=== PATIENT | female | born 1955 | race Caucasian/White ===

== ENCOUNTER 2017-05-07 06:14 | Emergency (ER) | payer OTHER ==
[~2017-05-07] VITALS: Ht 162.6 cm; Wt 62.4 kg
[~2017-05-07 06:14] MED LIST: ASPI1TAB2 PO; AZIT250T6 PO; BENZ100C PO; CEPH500C PO; CHOL100013 PO; HYDR200T5 PO; METH-37 PO; MULT-18 PO; MYCO500T PO; NAPR500T3 PO; ONDA4TAB7 PO; OXYC-328 PO; PRED1TAB PO; TRAM50TA PO
--- NOTE | 2017-05-07 06:39 | ED.ADGEN ---
Past History Past Medical History: Cancer, Kidney Stones, Other Past Surgical History: Hysterectomy Alcohol Use: None Drug Use: None Adult General HPI HPI Patient is a 61-year-old woman history of lupus, for which she is on chronic steroids, renal calculi, who presents to the emergency department with a complaint of 3 days of worsening ear pain, now radiating down into the face and jaw, and soreness in the mouth. Patient states that she initially experienced left-sided isolated ear pain, which is gradually worsening, she also noted that she had "white bumps", on her tongue on the roof of her mouth. Patient states that she contacted her table saw operator to , and had her steroid dose increased to 15 mg of prednisone daily. She states that despite taking this medication she is drinking expressing increasing pain. Also noticed a cough productive of white sputum over the past several days as well. No rashes, no swelling of the extremities. States there is some shortness breath, denies any chest pain, states did has had some sweating", but no chills. Denies any nausea, vomiting, any urinary complaints, any facial weakness or numbness, states she's had some tingling along the ear region, denies any weakness, numbness or tingling other areas of the body. No recent travel, no surgeries, no other medication changes. She last took acetaminophen at home 2 hours prior to arrival. No sick contacts or exposures, vaccinations are up-to-date. Review of Systems Review of Systems Constitutional: Denies fever or chills [] Eyes: Denies change in visual acuity, redness, or eye pain [] HENT: Denies nasal congestion or sore throat, complaining of left ear pain spreading into the face and down the jaw, with pain in the mouth and tongue with white lesions noted. Respiratory: Cough with clear sputum, shortness of breath with a past several days. Cardiovascular: No additional information not addressed in HPI [] GI: Denies abdominal pain, nausea, vomiting, bloody stools or diarrhea [] : Denies dysuria or hematuria [] Musculoskeletal: Denies back pain or joint pain [] Integument: Denies rash or skin lesions [] Neurologic: Denies headache, focal weakness or sensory changes [] Endocrine: Denies polyuria or polydipsia [] Current Medications Current Medications Current Medications Medications (Trade) Dose Ordered Sig/Nazia Start Time Stop Time Status Last Admin Dose Admin Amoxicillin/ Clavulanate Potassium (Augmentin 875/ 125mg) 1 tab 1X ONCE 05/07/17 08:15 05/07/17 08:16 DC 05/07/17 08:14 1 TAB Fluconazole (Diflucan) 200 mg 1X ONCE 05/07/17 08:15 05/07/17 08:16 DC 05/07/17 08:14 200 MG Multi-Ingredient Mouthwash/Gargle (Magic Mouthwash) 10 ml 1X ONCE 05/07/17 06:45 05/07/17 06:46 DC 05/07/17 07:25 10 ML Naproxen (Naprosyn) 250 mg 1X ONCE 05/07/17 06:45 05/07/17 06:46 DC 05/07/17 06:50 250 MG Nystatin (Mycostatin) 5 ml 1X ONCE 05/07/17 08:15 05/07/17 08:16 DC 05/07/17 08:14 5 ML Oxycodone/ Acetaminophen (Percocet 5/325) 1 tab 1X ONCE 05/07/17 06:45 05/07/17 06:46 DC 05/07/17 06:50 1 TAB Allergies Allergies Allergies Coded Allergies Type Severity Reaction Last Updated Verified No Known Drug Allergies 12/07/14 No Physical Exam Physical Exam Constitutional: Well developed, well nourished, no acute distress, non-toxic appearance. [] HENT: Normocephalic, atraumatic, bilateral external ears normal, patient with erythema to the left tympanic membrane, external canal with mild irritation, no lesions identified, patient with normal-appearing right tympanic membrane, patient noted to have a single white vesicular type lesion located on the left upper palate, thrush noted on the tongue, no plaquing, no swelling of the mucosa , oropharynx is otherwise clear, oropharynx moist, no oral exudates, nose normal. [] Eyes: PERRLA, EOMI, conjunctiva normal, no discharge. [] Neck: Normal range of motion, no tenderness, supple, no stridor. [] Cardiovascular:Heart rate regular rhythm, no murmur, S1, S2, no rubs or gallops. [] Lungs & Thorax: Patient coughing and examination, mildly diminished breath of the bases, no rhonchi or rales appreciated. No wheezing.[] Abdomen: Bowel sounds normal, soft, no tenderness, no rebound, rigidity, no guarding, no masses, no pulsatile masses. [] Skin: Warm, dry, no erythema, no rash. [] Back: No tenderness, no CVA tenderness. [] Extremities: No tenderness, no cyanosis, no clubbing, ROM intact, no edema. [] Neurologic: Alert and oriented X 3, normal motor function, normal sensory function, no focal deficits noted. [] Psychologic: Affect normal, judgement normal, mood normal. [] Current Patient Data Vital Signs Vital Signs Date Time Temp Pulse Resp B/P (MAP) Pulse Ox O2 Delivery O2 Flow Rate FiO2 05/07/17 06:35 98.3 85 16 97 Room Air Lab Results Laboratory Tests Test 05/07/17 06:36 05/07/17 07:25 White Blood Count 4.3 x10^3/uL (4.0-11.0) Red Blood Count 5.00 x10^6/uL (3.50-5.40) Hemoglobin 14.8 g/dL (12.0-15.5) Hematocrit 43.2 % (36.0-47.0) Mean Corpuscular Volume 86 fL (79-100) Mean Corpuscular Hemoglobin 30 pg (25-35) Mean Corpuscular Hemoglobin Concent 34 g/dL (31-37) Red Cell Distribution Width 16.2 % (11.5-14.5) H Platelet Count 198 x10^3/uL (140-400) Neutrophils (%) (Auto) 58 % (31-73) Lymphocytes (%) (Auto) 29 % (24-48) Monocytes (%) (Auto) 10 % (0-9) H Eosinophils (%) (Auto) 2 % (0-3) Basophils (%) (Auto) 0 % (0-3) Neutrophils # (Auto) 2.5 x10^3uL (1.8-7.7) Lymphocytes # (Auto) 1.3 x10^3/uL (1.0-4.8) Monocytes # (Auto) 0.4 x10^3/uL (0.0-1.1) Eosinophils # (Auto) 0.1 x10^3/uL (0.0-0.7) Basophils # (Auto) 0.0 x10^3/uL (0.0-0.2) Sodium Level 143 mmol/L (136-145) Potassium Level 3.7 mmol/L (3.5-5.1) Chloride Level 107 mmol/L (98-107) Carbon Dioxide Level 28 mmol/L (21-32) Anion Gap 8 (6-14) Blood Urea Nitrogen 10 mg/dL (7-20) Creatinine 0.7 mg/dL (0.6-1.0) Estimated GFR (Cockcroft-Gault) 85.1 BUN/Creatinine Ratio 14 (6-20) Glucose Level 87 mg/dL (70-99) Calcium Level 8.8 mg/dL (8.5-10.1) Total Bilirubin 0.4 mg/dL (0.2-1.0) Aspartate Amino Transferase (AST) 14 U/L (15-37) L Alanine Aminotransferase (ALT) 20 U/L (14-59) Alkaline Phosphatase 136 U/L (46-116) H Total Protein 8.0 g/dL (6.4-8.2) Albumin 4.0 g/dL (3.4-5.0) Albumin/Globulin Ratio 1.0 (1.0-1.7) Urine Collection Type Unknown Urine Color Yellow Urine Clarity Clear Urine pH 6.0 Urine Specific [place] 1.015 Urine Protein Neg (NEG-TRACE) Urine Glucose (UA) Neg mg/dL (NEG) Urine Ketones (Stick) Neg mg/dL (NEG) Urine Blood Neg (NEG) Urine Nitrite Neg (NEG) Urine Bilirubin Neg (NEG) Urine Urobilinogen Dipstick 0.2 mg/dL (0.2 mg/dL) Urine Leukocyte Esterase Neg (NEG) Urine RBC 1-2 /HPF (0-2) Urine WBC 1-4 /HPF (0-4) Urine Squamous Epithelial Cells Few /LPF Urine Bacteria 0 /HPF (0-FEW) Urine Yeast Present /HPF EKG EKG EC: Sinus rhythm, heart rate 81 beats/minute, left axis deviation, QTC of 447, NM 160, QRS of 78, no ST elevations or depressions, contour normality is noted in the inferior leads, abnormal ECG, does not meet STEMI criteria. When compared to ECG from 02/10/2016, no significant changes noted. As interpreted by me. Radiology/Procedures Radiology/Procedures [][address] [address] IMAGING REPORT Signed PATIENT: FLORENTINO ROBERTO ACCOUNT: [id number] : 1955 LOCATION: ER AGE: 61 SEX: F EXAM STATUS: REG ER ORD. PHYSICIAN: FABRICIO ALCALA DO REASON: Cough/SOB PROCEDURE: CHEST PA & LATERAL Chest, 2 views, 05/07/2017: History: Cough, shortness of breath Comparison is made to a study from 02/10/2016. The heart size and pulmonary vascularity are normal. There is moderate tortuosity of the thoracic aorta. No pulmonary infiltrates are seen. There is no evidence of pleural fluid. There are scattered degenerative changes in the spine with a mild scoliosis. There are new and worsening mid thoracic vertebral compression fractures. These have progressed since 10/14/2015. Surgical clips are present in the right axilla. IMPRESSION: 1. No acute cardiopulmonary abnormality is detected. 2. Worsening mid thoracic vertebral compression fractures DICTATED AND SIGNED BY: EBER MUHAMMAD MD DATE: 05/07/17719 CC: MARIELOS JOHNSON; FABRICIO ALCALA DO ~ Course & Med Decision Making Course & Med Decision Making Pertinent Labs and Imaging studies reviewed. (See chart for details) Patient's medical history and presentation, laboratory studies obtained along with x-ray of the chest which was unremarkable along with laboratory studies revealing no acute findings. Patient's examination is consistent with left- sided otitis media, and congestion patient's other symptoms is likely a viral infection, however with steroid use risk for superimposed bacterial infection is elevated. Additionally, patient noted to have evidence of reed and mouth and also in urine. Patient treated with Magic mouthwash swish and swallow in the emergency department, which she stated did help considerably with the discomfort. She also received naproxen and Percocet in the ED for ear pain, and stated that her pain was "three quarters of the way gone" on reevaluation. I did discuss findings with patient, including abscesses signs of systemic infection, with a clear chest x-ray, and unchanged ECG. Patient received first dose of Diflucan in the emergency department, was given a prescription for several Diflucan be taken on 10 May, additionally was given nystatin swish and swallow to be used for the next 2 weeks unless it is stopped by her primary care provider. Patient was also given Augmentin 875 mg, first dose in the ED, to be taken twice daily for the next 7 days to treat otitis media. She was given a short course of Percocet, along with Colace for constipation, instructed to follow-up with her primary care provider next week. Patient and at bedside voiced understanding and agreement with all instructions and precautions, and agreement with plan as stated. To return to the ED if any new or concerning symptoms develop. Patient discharged home in stable condition with prescriptions, precautions, and instructions for follow-up as stated. Final Impression Final Impression [] Problems: Dragon Disclaimer Dragon Disclaimer This electronic medical record was generated, in whole or in part, using a voice recognition dictation system. Departure: Impression: Primary Impression: Reed infection Additional Impression: Otitis media Disposition: HOME, SELF-CARE Condition: IMPROVED Scripts Docusate Sodium (COLACE) 100 Mg Capsule 100 MG PO QHS, #20 CAP Prov: FABRICIO ALCALA DO 05/07/17 Oxycodone Hcl/Acetaminophen (PERCOCET 5-325 MG TABLET) 1 Each Tablet 1 TAB PO PRN Q6HRS Y for PAIN, #10 TAB Prov: FABRICIO ALCALA DO 05/07/17 Fluconazole (DIFLUCAN) 200 Mg Tablet 200 MG PO 1X, #1 TAB Prov: FABRICIO ALCALA DO 05/07/17 Amoxicillin/Potassium Clav (AUGMENTIN 875-125 TABLET) 1 Each Tablet 1 TAB PO BID, #13 TAB Prov: FABRICIO ALCALA DO 05/07/17 FABRICIO ALCALA DO May 07, 2017 06:39
[2017-05-07] MEDS ORDERED: NAPROXEN 500 MG TABLET PO ONE (06:45)
[2017-05-07] MEDS ORDERED: LIDO:MAALOX:BENADRYL 1:1:1 180 ML BOTTLE. PO ONE (06:45)
[2017-05-07] MEDS ORDERED: oxyCODONE/APAP 5/325 1 TAB TABLET PO ONE (06:45)
[2017-05-07 06:53] LABS: BASO % 0 % (0-3); EOS # 0.1 x10^3/uL (0.0-0.7); EOS % 2 % (0-3); HEMATOCRIT 43.2 % (36.0-47.0); HEMOGLOBIN 14.8 g/dL (12.0-15.5); LYMPH # 1.3 x10^3/uL (1.0-4.8); LYMPH % 29 % (24-48); MEAN CORPUSCULAR HEMOGLOBIN 30 pg (25-35); MEAN CORPUSCULAR HGB CONC 34 g/dL (31-37); MEAN CORPUSCULAR VOLUME 86 fL (79-100); MONO # 0.4 x10^3/uL (0.0-1.1); MONO % 10 % (0-9); NEUT # 2.5 x10^3uL (1.8-7.7); NEUT % 58 % (31-73); PLATELET COUNT 198 x10^3/uL (140-400); RED CELL DISTRIBUTION WIDTH 16.2 % (11.5-14.5); WHITE BLOOD COUNT 4.3 x10^3/uL (4.0-11.0)
[2017-05-07 07:03] LABS: CALCIUM 8.8 mg/dL (8.5-10.1); CREATININE 0.7 mg/dL (0.6-1.0); GFR 85.1; POTASSIUM 3.7 mmol/L (3.5-5.1); TOTAL BILIRUBIN 0.4 mg/dL (0.2-1.0)
--- NOTE | 2017-05-07 07:11 | EKG ---
[address] [address] Test Date: 2017-05-07 Test Time: 06:42:03 Pat Name: FLORENTINO ROBERTO Department: Room: Gender: F Holter Technician: : 1955 Requested By: FABRICIO ALCALA Order Number: [id number] Reading MD: Arnoldo Isbell Measurements Intervals [place] Rate: 81 P: 42 WA: 168 QRS: -8 QRSD: 78 T: 28 QT: 384 QTc: 447 Interpretive Statements SINUS RHYTHM Electronically Signed On 05-08-2017 9:56:48 CDT by Arnoldo Isbell
--- NOTE | 2017-05-07 07:26 | RAD ---
Chest, 2 views, 05/07/2017: History: Cough, shortness of breath Comparison is made to a study from 02/10/2016. The heart size and pulmonary vascularity are normal. There is moderate tortuosity of the thoracic aorta. No pulmonary infiltrates are seen. There is no evidence of pleural fluid. There are scattered degenerative changes in the spine with a mild scoliosis. There are new and worsening mid thoracic vertebral compression fractures. These have progressed since 10/14/2015. Surgical clips are present in the right axilla. IMPRESSION: 1. No acute cardiopulmonary abnormality is detected. 2. Worsening mid thoracic vertebral compression fractures
[2017-05-07 07:43] LABS: BACTERIA,URINE 0 /HPF (0-FEW); BILIRUBIN,URINE NEG (NEG); CLARITY,URINE CLEAR; COLOR,URINE YELLOW; GLUCOSE,URINE NEG (NEG); NITRITE,URINE NEG (NEG); SQUAMOUS EPITHELIAL CELL,UR FEW /LPF; UROBILINOGEN,URINE 0.2 mg/dL (0.2 mg/dL); YEAST,URINE PRESENT /HPF
[2017-05-07] MEDS ORDERED: OXYC-323 PO (08:04)
[2017-05-07] MEDS ORDERED: DOCU-109 PO (08:04)
[2017-05-07] MEDS ORDERED: FLUC200T PO (08:04)
[2017-05-07] MEDS ORDERED: AMOX1TAB61 PO (08:04)
[2017-05-07] MEDS ORDERED: FLUCONAZOLE 100 MG TABLET. PO ONE (08:15)
[2017-05-07] MEDS ORDERED: NYSTATIN 100,000 UNITS/ML ORAL SUSPENSION 60ML BOTTLE. SWSW ONE (08:15)
[2017-05-07] MEDS ORDERED: AMOXICILLIN/K CLAV 875/125MG TABLET. PO ONE (08:15)
[2017-05-07 08:20] VITALS: BP 104/59
== END 2017-05-07 08:20 | disposition home or self-care (01) ==
LOC: ER 06:14
DX: B37.9 Candidiasis, unspecified (principal); K59.00 Constipation, unspecified; H92.02 Otalgia, left ear; Z79.52 Long term (current) use of systemic steroids; Z87.442 Personal history of urinary calculi
CPT/HCPCS: 36415; 71020; 80053; 81001; 85025; 93005; 99285-25

== ENCOUNTER 2017-05-11 07:02 | Inpatient (IN) | payer OTHER ==
[~2017-05-11] VITALS: Ht 162.6 cm; Wt 64.2 kg
[~2017-05-11 07:02] MED LIST changes: +AMOX1TAB61 PO; +ASPI-621 PO; -ASPI1TAB2 PO; +DOCU-109 PO; +FLUC200T PO; +OXYC-323 PO
[2017-05-11] MEDS ORDERED: IV NORMAL SALINE 1,000ML 1,000 ML IV SCH (07:35)
--- NOTE | 2017-05-11 08:01 | PHYS DOC ---
General Chief Complaint: SKIN PROBLEM Stated Complaint: BLISTERS Time Seen by MD: 07:04 Source: patient, old records Exam Limitations: no limitations Problems: History of Present Illness Initial Comments Patient is a 61-year-old female accompanied to the emergency department by her spouse complaining of worsening left-sided facial pain/swelling. Patient has history Lupus as well as melanoma and breast cancer both treated with excision. 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 Patient states she was seen at this emergency department 4 days ago with left ear pain and white bumps on her tongue. She was diagnosed with otitis media as well as oral and vaginal candidal infections in discharge with prescription for Magic mouthwash, Augmentin, Percocet, Colace, and Diflucan. She says she's been taking medications as prescribed and despite that says Monday and Monday of this week she developed sores on the left side of her face. There were blisters initially, she reports that she could feel them before they actually manifested physically; she says they felt electric kind of itching and burning however now they're just painful. She's had worsening of the swelling of the left side of her face and swelling in the past few days and states that she hasn't been able to drink or eat. She denies fever chills sweats or body aches she denies vision changes or dyspnea. She reports she did not receive the shingles vaccination. She has not had any lesions on her nose. ED vital signs: 99, 105, 20, 105/69, 96% room air Timing/Duration: gradual, last week Severity: severe Location: mouth, facial Prearrival Treatment: over the counter meds, prescription meds Modifying Factors: worse with activity, worse with coughing, improves with rest Associated Symptoms: drooling, facial pain/swelling, malaise, nasal congestion/ drainage, poor solids intake, sore throat Allergies: Coded Allergies: No Known Drug Allergies (Unverified , 12/07/14) Past Medical History Medical History: other (breast cancer and melanoma both treated by local excision, lupus patient follows up with electrical machine builder at , kidney stones, chronic pain, chronic steroid therapy) Surgical History: noncontributory, other (mastectomy, hysterectomy, excision of skin cancers) Social History Smoker: cigarettes Alcohol: none Drugs: none Constitutional: denies chills, denies diaphoresis, denies fever, malaise, weakness Eyes: denies blindness, denies blurred vision, denies drainage, denies decreased acuity Ears: see HPI, denies dizziness, denies tinnitus Nose: see HPI, denies clots, congestion, denies epistaxis Mouth: see HPI Throat: pain, denies swelling, denies neck stiffness, denies difficulty with fluids Respiratory: denies cough, denies shortness of breath, denies wheezing Cardiovascular: denies chest pain, denies palpitations, denies syncope Gastrointestinal: denies abdominal pain, denies nausea, denies vomiting Musculoskeletal: see HPI Skin: see HPI Neurological: see HPI Physical Exam General Appearance: WD/WN, moderate distress Eyes: bilateral eye normal inspection, bilateral eye PERRL, bilateral eye EOMI Nose: normal inspection Mouth/Throat: other (tongue swelling noted airway remains patent, there is a whitish exudate on an erythematous base consistent with thrush, significant left facial swelling and tenderness no palpable subcutaneous masses) Neck: supple, trachea midline, lymphadenopathy (L) Cardiovascular/Respiratory: normal peripheral pulses, normal breath sounds, no respiratory distress, tachycardia Neurologic/Psychiatric: investigator claims II-XII nml as tested, no motor/sensory deficits, alert, oriented x 3, other (flat depressed affect) Skin: warm/dry (left-sided facial swelling, induration, and erythema, scabbed lesions no new vesicles noted, no palpable subcutaneous masses or fluctuance,) Orders, Labs, Meds Magic mouthwash ordered for patient symptom control. Solu-Medrol 125 mg IV ( decreased swelling) as well as Diflucan and acyclovir IV to initiate treatment. 1 L normal saline IV bolus as well as CT evaluation of the maxillofacial to determine the extent of disease. Fentanyl IV for discomfort. PATIENT: FLORENTINO ROBERTO ACCOUNT: [id number] : 1955 LOCATION: ER AGE: 61 SEX: F EXAM STATUS: REG ER ORD. PHYSICIAN: LEAH COLVIN DO REASON: face pain/swelling, zoster/thrush - left side swelling PROCEDURE: CT MAXILLOFACIAL W/CONTRAST Examination: CT maxillofacial with IV contrast History: History of face pain, swelling, left-sided swelling Comparison: None available Technique: Axial CT images of the face were performed with IV contrast. Coronal and sagittal reformats are performed. PQRS Compliance Statement: One or more of the following individualized dose reduction techniques were utilized for this examination: 1. Automated exposure control 2. Adjustment of the mA and/or kV according to patient size 3. Use of iterative reconstruction technique Findings: The visualized intracranial portion grossly appears unremarkable. The bilateral orbital globes appear intact. The retro-orbital fat is maintained. There is diffuse mild increased fat stranding identified in the left face including the left cheek region and about the left ear extending inferiorly inferior to the mandible likely diffuse cellulitis. An obvious focal fluid collection to suggest an abscess is not identified. Few prominent cervical level 2 lymph nodes identified with the largest measuring 1.1 cm. The left submandibular gland is mildly enlarged. The visualized parapharyngeal spaces are patent. The visualized carotids grossly appears unremarkable. Impression: Diffuse inflammatory fat stranding identified in the left side of the face from the level of the ear to involving the cheek and extending inferiorly below the level of the mandible likely cellulitis. Few reactive lymphadenopathy identified in the left cervical level II region. DICTATED AND SIGNED BY: KELSEY RODGERS MD DATE: 05/11/17 0836 CC: MARIELOS JOHNSON; LEAH COLVIN DO ~ Pertinent Labs: WBC 5.1, Lact 2.2, CRP 67.4, plt 129. ESR/urine studies, BC pending. 0859: Pt rechecked, feeling somewhat better with IV fluids. States fentanyl helped her pain which is now returning. Still feels unable to eat/drink/take meds orally, will discuss pt with Dr Thompson for inpatient treatment. 0916: I discussed the patient with Dr. Thompson. He was in agreement for isolation inpatient telemetry admission for IV hydration, antiviral/antifungal IV treatment, respiratory and airway observation/support, and pain control. IMPRESSIONS: Varicella zoster left facial Thrush Unable to tolerate PO fluids Intractable pain SLE w/chronic steroid therapy h/o melanoma/breast cancer Departure Time of Disposition: 09:04 Disposition: 09 ADMITTED INPATIENT Diagnosis: varicella zoster left face, thrush, unable to tole Condition: STABLE Additional Instructions: Inpt/tele admission, LEAH Pace DO May 11, 2017 08:01
[2017-05-11] MEDS: fentaNYL PF 100 MCG/2 ML VIAL IV PRN ×2 (08:03→09:07)
[2017-05-11 08:05] LABS: BASO % 1 % (0-3); EOS % 0 % (0-3); HEMATOCRIT 44.1 % (36.0-47.0); HEMOGLOBIN 15.1 g/dL (12.0-15.5); LYMPH # 0.4 x10^3/uL (1.0-4.8); LYMPH % 9 % (24-48); MEAN CORPUSCULAR HEMOGLOBIN 29 pg (25-35); MEAN CORPUSCULAR HGB CONC 34 g/dL (31-37); MEAN CORPUSCULAR VOLUME 86 fL (79-100); MONO # 0.5 x10^3/uL (0.0-1.1); MONO % 10 % (0-9); NEUT # 4.2 x10^3uL (1.8-7.7); NEUT % 81 % (31-73); PLATELET COUNT 129 x10^3/uL (140-400); RED BLOOD COUNT 5.15 x10^6/uL (3.50-5.40); WHITE BLOOD COUNT 5.1 x10^3/uL (4.0-11.0)
[2017-05-11 08:09] LABS: C REACTIVE PROTEIN 67.4 mg/L (0-3.3); CALCIUM 8.9 mg/dL (8.5-10.1); CREATININE 0.9 mg/dL (0.6-1.0); GFR 63.7; POTASSIUM 4.2 mmol/L (3.5-5.1); TOTAL BILIRUBIN 1.1 mg/dL (0.2-1.0); TOTAL PROTEIN 8.2 g/dL (6.4-8.2)
[2017-05-11] MEDS ORDERED: IOHEXOL 300 MG/ML 75 ML VIAL. IV ONE (08:10)
[2017-05-11] MEDS ORDERED: methylPREDNISolone SOD SUCC PF 125 MG/2 ML VIAL. IV ONE (08:15)
[2017-05-11] MEDS: LIDO:MAALOX:BENADRYL 1:1:1 180 ML BOTTLE. PO PRN ×2 (08:29→21:59)
[2017-05-11] MEDS ORDERED: ONDANSETRON PF 4 MG/2 ML VIAL. IV ONE (08:30)
[2017-05-11] MEDS ORDERED: ACYCLOVIR SODIUM IV ONE (08:30)
[2017-05-11] MEDS ORDERED: DEXTROSE 5% IV ONE (08:30)
--- NOTE | 2017-05-11 08:45 | RAD ---
Examination: CT maxillofacial with IV contrast History: History of face pain, swelling, left-sided swelling Comparison: None available Technique: Axial CT images of the face were performed with IV contrast. Coronal and sagittal reformats are performed. PQRS Compliance Statement: One or more of the following individualized dose reduction techniques were utilized for this examination: 1. Automated exposure control 2. Adjustment of the mA and/or kV according to patient size 3. Use of iterative reconstruction technique Findings: The visualized intracranial portion grossly appears unremarkable. The bilateral orbital globes appear intact. The retro-orbital fat is maintained. There is diffuse mild increased fat stranding identified in the left face including the left cheek region and about the left ear extending inferiorly inferior to the mandible likely diffuse cellulitis. An obvious focal fluid collection to suggest an abscess is not identified. Few prominent cervical level 2 lymph nodes identified with the largest measuring 1.1 cm. The left submandibular gland is mildly enlarged. The visualized parapharyngeal spaces are patent. The visualized carotids grossly appears unremarkable. Impression: Diffuse inflammatory fat stranding identified in the left side of the face from the level of the ear to involving the cheek and extending inferiorly below the level of the mandible likely cellulitis. Few reactive lymphadenopathy identified in the left cervical level II region.
[2017-05-11 09:09] LABS: SEDIMENTATION RATE 30 (0-25)
[2017-05-11] MEDS ORDERED: fentaNYL PF 100 MCG/2 ML VIAL IV PRN (09:30)
[2017-05-11] MEDS ORDERED: DOCUSATE 100 MG/10 ML SOLUTION. PO PRN (09:30)
[2017-05-11] MEDS ORDERED: ACETAMINOPHEN 325 MG TABLET PO PRN (09:30)
[2017-05-11] MEDS ORDERED: LIDO:MAALOX:BENADRYL 1:1:1 180 ML BOTTLE. PO PRN (09:30)
[2017-05-11] MEDS: FLUCONAZOLE 400MG/200ML PREMIX 200 ML IV SCH (09:45)
[2017-05-11 10:14] VITALS: BP 111/51
[2017-05-11] MEDS ORDERED: MYCO500T PO (10:33)
[2017-05-11] MEDS: IV NORMAL SALINE 1,000ML 1,000 ML IV SCH ×4 (10:38→22:07)
[2017-05-11 10:59] VITALS: BP 111/51
--- NOTE | 2017-05-11 11:04 | NUR ---
Patient to ICU 1, chief complaint is shingles to left side of her face, from ear to chin. Left cheek is swollen, tongue is coated white, swollen and painful as well. Patient has not been able to eat or drink due to the pain. Rates pain 8/10 at this time. Denies other complaints. Patient oriented to room, use of call light, and plan of care. Pain med given see eMAR. Received verbalization of understanding, denies questions/needs. Will monitor.
[2017-05-11] MEDS: HYDROmorphone PF 1 MG/ML DISP.SYRIN IV PRN ×3 (11:41→20:06)
[2017-05-11] MEDS: methylPREDNISolone SOD SUCC PF 125 MG/2 ML VIAL. IV SCH ×2 (14:16→21:58)
[2017-05-11] MEDS: ONDANSETRON PF 4 MG/2 ML VIAL. IV PRN ×2 (15:51→20:06)
[2017-05-11] MEDS: HYDROXYCHLOROQUINE 200 MG TABLET PO SCH (16:28)
[2017-05-11] MEDS: DEXTROSE 5% IV SCH (16:28)
[2017-05-11] MEDS: ACYCLOVIR SODIUM IV SCH (16:28)
[2017-05-11] MEDS: MYCOPHENOLATE MOFETIL 500 MG TABLET. PO SCH (16:28)
[2017-05-11 20:00] VITALS: BP 131/69
--- NOTE | 2017-05-11 20:00 | NUR ---
resumed care of pt. reviewed poc with pt and . pt having pain from left side of face and mouth. pain medication makes her nauseous. pt is in agreement with poc, will continue poc. will continue to monitor and help pt to be as comfortable as possible.
[2017-05-12] VITALS: BP 118/72
[2017-05-12] MEDS: ONDANSETRON PF 4 MG/2 ML VIAL. IV PRN ×3 (00:53→09:16)
[2017-05-12] MEDS: DEXTROSE 5% IV SCH ×3 (00:53→17:41)
[2017-05-12] MEDS: ACYCLOVIR SODIUM IV SCH ×3 (00:53→17:41)
[2017-05-12] MEDS: HYDROmorphone PF 1 MG/ML DISP.SYRIN IV PRN ×4 (00:54→13:20)
--- NOTE | 2017-05-12 04:04 | HP ---
ADMIT DATE: 05/11/2017 SUBJECTIVE: The patient is a 61-year-old female patient who was brought to the Emergency Room by her with complaining of worsening left-sided facial pain and swelling. The patient is known to have lupus and has been on steroids as well as CellCept and hydrochloroquine. She apparently came and was seen in the Emergency Room last Monday and was treated for what seemed to be otitis media as well as oral and vaginal candidiasis and was discharged home with a prescription for Magic mouthwash, Augmentin, Percocet, Colace, and Diflucan. She apparently took the medication as prescribed, despite that she developed sores in left side of her face. There were blisters initially, she reports that she could feel them before they actually manifest physically, they were itchy and burning however, now they are just painful. She had worsening swelling of her left side of her face and the swelling is in the last few days, states that she has not been able to eat or drink; however, she denied any fevers, chills, sweats or body aches. She was basically evaluated in the Emergency Room, was found to have shingles in the distribution of the left mandibular branch of the left fifth nerve, also severe marked swelling with the left side of the face and tongue and oropharyngeal candidiasis and was admitted for hydration and started on acyclovir as well as methylprednisolone and pain management and also fluconazole. PAST MEDICAL HISTORY: Significant for longstanding SLE for which she is on hydroxychloroquine sulfate, multivitamin, mycophenolate mofetil as well as prednisone. She is known to have melanoma and breast cancer status post right mastectomy. PAST SURGICAL HISTORY: Significant for total abdominal hysterectomy and bilateral salpingo-oophorectomy, right mastectomy and melanoma resection from the inner aspect of the left leg. ALLERGIES: She has no known drug allergies. MEDICATIONS: She is currently on hydroxychloroquine 200 mg once a day, multivitamin 1 tablet once a day, CellCept 1000 mg daily and prednisone 6 mg p.o. daily. FAMILY HISTORY: She has one sister who is younger and one brother older, both of them are healthy. Her mother at the age of 82 with cancer of unknown primary and father at the age of 78 because of metastatic melanoma. SOCIAL HISTORY: She is , has 1 son. She smokes a pack a day. Does not drink alcohol. 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 REVIEW OF SYSTEMS: The patient denied any blurring of vision, cataract, glaucoma or macular degeneration. Denied any earache, tinnitus or sensorineural deafness. Denied any nosebleeds, stuffy nose or postnasal drip. Denied any sore throat. She did complain of a left-sided earache. Denied any stuffy nose, nosebleed or postnasal drip. Did complain of a sore throat and difficulty swallowing. Denied any nausea, vomiting, diarrhea or constipation. Denied any hematemesis, melena or hematochezia. Denied any dysuria, frequency for hematuria. Denied any chest pain, shortness of breath, orthopnea, paroxysmal nocturnal dyspnea. Denied any cough, phlegm or hemoptysis. Denied any chills, rigors or fever. Denied any dizziness, lightheadedness, or vertigo. Upon arrival to the Emergency Room, she was pale, but not jaundiced, cyanosis, or thyromegaly. No jugular venous distention. No limb edema. PHYSICAL EXAMINATION: VITAL SIGNS: Her heart rate was 105, blood pressure was 137/90, temperature was initially 99, subsequently trent to 101.6, respiratory rate was 20, and oxygen saturation was 99% on room air. HEAD, EYES, EARS, NOSE AND THROAT: Showed normocephalic, atraumatic. She has blisters in the distribution of the left mandibular branch of the left fifth cranial nerve with blisters in her left ear. She has also swelling of the left side of face. She has oropharyngeal candidiasis and swollen tongue. NECK: Supple with no lymphadenopathy, no thyromegaly, no jugular venous distension, no audible bruit. HEART: Showed normal first and second heart sounds with no gallop, rub or murmur. CHEST: Clear to auscultation. No crepitation or rhonchi. ABDOMEN: Distended, soft, nontender. No guarding or rigidity. No organomegaly. Hernial orifices intact. Bowel sounds normal. NEUROLOGIC: She is awake, alert, responding appropriately. Her cranial nerves intact. She moves extremities without difficulty. She ambulates without assistance or assistive devices. LABORATORY DATA: While in the Emergency Room, she has lab work done, which showed a white cell count 5100, hemoglobin 15, hematocrit 44, MCV 86, platelet count of 129,000 with normal manual differential. Her sed rate was 30 mm per hour. Her serum sodium was 137, potassium 4.2, chloride 100, bicarbonate 25, anion gap of 12, BUN 20, creatinine 0.9, estimated GFR was 64 mL per minute. Her glucose was 89, lactic acid was 2.2, calcium was 8.9. Total bilirubin, AST, ALT were normal. Alkaline phosphatase was elevated at 167. Her C-reactive protein was 67 mg/dL. Total protein was 8.2, albumin was 4. ASSESSMENT: In summary, this is a 61-year-old female patient with shingles involving the mandibular branch of the left fifth cranial nerve. She has also marked oropharyngeal candidiasis, swelling of the left side of face and tongue, although there is no erythema. She has oropharyngeal and vaginal candidiasis. Other medical problems include longstanding systemic lupus erythematosus, on immunosuppressive therapy in the form of hydrochloroquine, CellCept as well as prednisone. She has history of melanoma resected from the inner aspect of left leg and breast cancer status post right mastectomy. PLAN: My plan is to continue with acyclovir, IV steroids, IV Diflucan. Continue IV fluid and was started on liquid diet and advance as tolerated. Also, we will start her on hydromorphone 1 mg IV every 3 hours for pain management. MIGUEL A TATE MD DR: AMARILYS/carey JOB#: [id number] / [id number]
[2017-05-12] MEDS: IV NORMAL SALINE 1,000ML 1,000 ML IV SCH ×3 (04:58→20:31)
[2017-05-12] MEDS: methylPREDNISolone SOD SUCC PF 125 MG/2 ML VIAL. IV SCH ×3 (05:15→20:30)
[2017-05-12 05:30] VITALS: BP 123/64
[2017-05-12 06:33] LABS: BASO % 0 % (0-3); EOS % 0 % (0-3); HEMATOCRIT 34.1 % (36.0-47.0); HEMOGLOBIN 11.9 g/dL (12.0-15.5); LYMPH # 0.4 x10^3/uL (1.0-4.8); LYMPH % 10 % (24-48); MEAN CORPUSCULAR HEMOGLOBIN 30 pg (25-35); MEAN CORPUSCULAR HGB CONC 35 g/dL (31-37); MEAN CORPUSCULAR VOLUME 86 fL (79-100); MONO # 0.3 x10^3/uL (0.0-1.1); MONO % 8 % (0-9); NEUT # 3.4 x10^3uL (1.8-7.7); NEUT % 82 % (31-73); PLATELET COUNT 111 x10^3/uL (140-400); RED BLOOD COUNT 3.98 x10^6/uL (3.50-5.40); RED CELL DISTRIBUTION WIDTH 15.7 % (11.5-14.5); WHITE BLOOD COUNT 4.2 x10^3/uL (4.0-11.0)
[2017-05-12 06:51] LABS: ALBUMIN 2.9 g/dL (3.4-5.0); ALBUMIN/GLOBULIN RATIO 0.9 (1.0-1.7); CALCIUM 7.4 mg/dL (8.5-10.1); CREATININE 0.5 mg/dL (0.6-1.0); GFR 125.4; POTASSIUM 3.9 mmol/L (3.5-5.1); TOTAL BILIRUBIN 0.6 mg/dL (0.2-1.0); TOTAL PROTEIN 6.2 g/dL (6.4-8.2)
[2017-05-12 07:24] LABS: MICROCYTOSIS SLIGHT; PLT ESTIMATE DECREASED (ADEQUATE)
[2017-05-12 07:25] LABS: SPHEROCYTES OCC
[2017-05-12] MEDS ORDERED: FLUCONAZOLE 400MG/200ML PREMIX 200 ML IV SCH (08:00)
[2017-05-12] MEDS ORDERED: HYDROXYCHLOROQUINE 200 MG TABLET PO SCH (09:00)
[2017-05-12] MEDS: MYCOPHENOLATE MOFETIL 500 MG TABLET. PO SCH (09:17)
[2017-05-12] MEDS: HYDROXYCHLOROQUINE 200 MG TABLET PO SCH (09:17)
[2017-05-12] MEDS: MULTIVITAMIN with MINERAL TABLET. PO SCH (09:17)
[2017-05-12] MEDS: FLUCONAZOLE 400MG/200ML PREMIX 200 ML IV SCH (09:19)
[2017-05-12 09:55] VITALS: BP 123/55
[2017-05-12] MEDS ORDERED: SCOPOLAMINE 1.5MG PATCH. TD ONE (11:30)
[2017-05-12 14:10] VITALS: BP 118/76
[2017-05-12] MEDS ORDERED: PROMETHAZINE 12.5 MG in IV NORMAL SALINE 50ML 50 ML IV PRN (14:15)
[2017-05-12] MEDS ORDERED: PROMETHAZINE 25 MG/ML VIAL IV ONE (14:15)
[2017-05-12] MEDS ORDERED: ONDANSETRON PF 4 MG/2 ML VIAL. IV PRN (14:15)
[2017-05-12] MEDS ORDERED: IV NORMAL SALINE 50ML 50 ML ONE (14:15)
[2017-05-12] MEDS: BUTALB/APAP/CAFEIN 50/325/40MG TABLET. PO PRN (14:24)
--- NOTE | 2017-05-12 14:32 | NUR ---
Pt continues to have nausea and vomiting episodes throughout day and prior to pain medications. Scopolamine patch applied and Zofran given, this was ineffective. Phenergan IV administered at this time. IV fluids continued. Pain medication changed to Morphine IV PRN. Pt continues to have pain and swelling to left side of face. Facial area appears to be scabbing and weeping at this time, no pustules noted. Family at bedside, able to verbalize POC. Will continue to monitor. VSS.
--- NOTE | 2017-05-12 15:30 | NUR ---
Pt states IV Phenergan is effective and making her feel better.
--- NOTE | 2017-05-12 16:11 | NUR ---
Pt to transfer off unit to South to Room 117. Family Aware
[2017-05-12] MEDS: NYSTATIN 100,000 UNITS/ML ORAL SUSPENSION 60ML BOTTLE. SWSW SCH ×2 (17:40→20:30)
[2017-05-12] MEDS: MORPHINE SULFATE 2 MG/ML DISP.SYRIN. IV PRN ×2 (17:54→20:30)
[2017-05-12 19:32] VITALS: BP 128/72
[2017-05-12] MEDS: CIPROFLOXACIN 0.3% OPHTH SOLUTION 2.5ML BOTTLE. OU SCH (20:30)
[2017-05-12 23:05] VITALS: BP 129/67
[2017-05-13] MEDS: DEXTROSE 5% IV SCH ×3 (00:46→18:04)
[2017-05-13] MEDS: MORPHINE SULFATE 2 MG/ML DISP.SYRIN. IV PRN ×4 (00:46→22:58)
[2017-05-13] MEDS: ACYCLOVIR SODIUM IV SCH ×3 (00:46→18:04)
[2017-05-13] MEDS: methylPREDNISolone SOD SUCC PF 125 MG/2 ML VIAL. IV SCH (04:38)
[2017-05-13] MEDS: IV NORMAL SALINE 1,000ML 1,000 ML IV SCH ×2 (04:38→09:54)
[2017-05-13 05:31] VITALS: BP 136/64
[2017-05-13 05:51] LABS: HEMATOCRIT 33.6 % (36.0-47.0); HEMOGLOBIN 11.7 g/dL (12.0-15.5); RED BLOOD COUNT 3.99 x10^6/uL (3.50-5.40); RED CELL DISTRIBUTION WIDTH 15.9 % (11.5-14.5); WHITE BLOOD COUNT 3.7 x10^3/uL (4.0-11.0)
[2017-05-13 06:02] LABS: ALBUMIN 2.8 g/dL (3.4-5.0); ALBUMIN/GLOBULIN RATIO 0.9 (1.0-1.7); CALCIUM 7.6 mg/dL (8.5-10.1); CREATININE 0.5 mg/dL (0.6-1.0); GFR 125.4; POTASSIUM 3.8 mmol/L (3.5-5.1); TOTAL BILIRUBIN 0.4 mg/dL (0.2-1.0); TOTAL PROTEIN 5.8 g/dL (6.4-8.2)
[2017-05-13] MEDS: CIPROFLOXACIN 0.3% OPHTH SOLUTION 2.5ML BOTTLE. OU SCH ×2 (08:26→21:00)
[2017-05-13] MEDS: NYSTATIN 100,000 UNITS/ML ORAL SUSPENSION 60ML BOTTLE. SWSW SCH ×4 (08:26→21:00)
[2017-05-13] MEDS: MULTIVITAMIN with MINERAL TABLET. PO SCH (08:27)
--- NOTE | 2017-05-13 09:37 | NUR ---
Pt states face and throat feel much better. Was able to eat a little bit today. No complaints at this time. in room with patient. Pt A&0x4. Left side of face and ear swollen and having some drainage from shingles vesicles. Pt in airborne and contact precautions. Will continue to monitor.
--- NOTE | 2017-05-13 09:52 | PN ---
DATE: 05/12/2017 SUBJECTIVE: The patient is resting, propped up in bed, in no apparent respiratory distress; however, she continued to have nausea, vomiting related to hydromorphone. She continues to be afebrile and her white cell count is normal. PHYSICAL EXAMINATION: GENERAL: When I examined her, she was pale, but no jaundice, cyanosis, or thyromegaly. No jugular venous distention. No limb edema. VITAL SIGNS: Her heart rate was 108, blood pressure was 123/55, temperature was 98.1, respiratory rate was 18 and oxygen saturation was 97%. HEAD, EYES, EARS, NOSE AND THROAT: Showed normocephalic, atraumatic. NECK: Supple. HEART: Showed normal first and second heart sounds with no gallop, rub or murmur. CHEST: Clear to auscultation. No crepitation or rhonchi. ABDOMEN: Distended, soft, nontender. NEUROLOGIC: She is awake, alert, responding appropriately. Cranial nerves intact. She moves extremities without difficulty. DERMATOLOGIC: Examination skin showed that she continued to have herpetic rash in the distribution of the mandibular branches of the left fifth cranial nerve. Her intake over the last 24 hours was 5000, output was 1050. LABORATORY DATA: Her lab work this morning showed a white cell count of 4200, hemoglobin 12, hematocrit 34, MCV 86 and platelet count 211,000 with a manual differential showed 82% polymorphs, 10% lymphocytes, and 8% monocytes. Her chemistry showed a serum sodium 135, potassium 3.9, chloride 104, bicarbonate 27, anion gap of 4, BUN 13, creatinine 0.5, estimated GFR was 125 mL per minute. Her glucose was 104, calcium was 7.4. Total bilirubin, AST, ALT, alkaline phosphatase were normal. Total protein was 6.2, albumin 2.9. Her nasal screen for MRSA PCR was negative. ASSESSMENT: 1. Shingles involving the mandibular branches of the left fifth cranial nerve. 2. She also has marked oropharyngeal candidiasis and swelling in the left side of face, tongue, although there is no erythema. 3. She has also vulvovaginal candidiasis. 4. Longstanding systemic lupus erythematosus, on immunosuppressive therapy in the form hydrochloroquine, CellCept as well as prednisone. 5. She has history of melanoma resected from the inner aspect of the left leg and breast cancer, status post right mastectomy. PLAN: To continue with acyclovir, IV steroids, IV Diflucan. I will add nystatin suspension, continue with IV fluid, pain management and antiemetic. I will contact her chemotherapist to see whether we need to continue with hydrochloroquine and/or CellCept. MIGUEL A TATE MD DR: AMARILYS/carey JOB#: [id number] / [id number]
[2017-05-13] MEDS: BUTALB/APAP/CAFEIN 50/325/40MG TABLET. PO PRN (09:54)
[2017-05-13] MEDS: FLUCONAZOLE 400MG/200ML PREMIX 200 ML IV SCH (10:24)
[2017-05-13 10:49] VITALS: BP 114/64
--- NOTE | 2017-05-13 12:14 | NUR ---
Per Dr Thompson, hold on Flu vaccine as patient is immunocompromised. PNA vaccine ordered.
[2017-05-13] MEDS: ENOXAPARIN 40 MG/0.4 ML DISP.SYRIN. SQ SCH (12:41)
[2017-05-13] MEDS ORDERED: PNEUMOC CONJ VACC 23-VALENT 0.5 ML VIAL. VAX IM ONE (12:45)
[2017-05-13 15:29] VITALS: BP 135/76
[2017-05-13] MEDS ORDERED: methylPREDNISolone SOD SUCC PF 125 MG/2 ML VIAL. IV SCH (18:00)
[2017-05-13 19:00] VITALS: BP 112/57
--- NOTE | 2017-05-13 19:15 | NUR ---
Around 1230, fellow RN came out with patients tray stating patient called and asked tray be removed since a nurse came in and stated her room stinks. This nurse and other nurse on floor never stated that to patient. came out and said patient had just told him what happened and he was very upset and that was very unprofessional. RN stated she agreed but we do not know who said it. NCM was here at time and said that when she went into deliver patients tray she mentioned to patient that, "it must stink being stuck in here with the door shut." NCM apologized for the misunderstanding and reassured that she did not mean that the patients room stinks. At 1750, RN went in to hang IV abx and administer IV steroid and patient asked, "who were the ladies walking down the prasad?" RN said, "I don't know, what did they look like?". Pt reported, "they were wearing long green shiny dresses, I think their daughters work here." RN said, "I did not see them". Pt is at end of hallway, only 1 room after. About 30 minutes later, RN came into room to take vitals and patient was coming out of bathroom and said, "I heard them talking about me and I thinks it uncalled for." RN asked who was talking about her. She said, "the other nurses". RN asked where were the nurses, she responded, "in the bathroom." RN said, "there is no one in the bathroom". Pt responded, "No, I heard them when I was in the bathroom." RN could hear a nurse talking with a patient two rooms down. RN responded to patient, "that is a nurse talking with a patient but they are not talking about you." RN tried to reassure her that no one was talking about her. Pt became very upset and offensive, called and told him things were getting out of hand here. Pt would not let RN talk to . RN called on phone and expressed concerns of patient hearing and seeing things. stated she never had done this before. said, "well there was a lady trying a gown on next door that was green." RN asked if he was talking about the hospital gown. replied, "well is it green?" RN replied yes, but I am still concerned because she described it as "a beautiful shiny dress and they must be going somewhere". coming up to see patient. RN called Dr Thompson, expressed concerns to him. 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 RN reported that dose had already been given. Per Dr Thompson, d/c steroids for now, c/s Dr Cotter. here with patient. updated on what Dr Thompson had informed and was given a education regarding steroid psychosis. came out later, reported they are very upset that it was not reported that psychosis could be a side effect. RN apologized that they were not informed of the side effects of prednisone. RN asked if there was anything she could do to help, denied anything at this time. Dr Cotter saw patient, is not going to proceed with care at this time as patient is aware that it was a moment of psychosis that she experienced and is now not experiencing anything. Per Dr Cotter, call if anything changes.
--- NOTE | 2017-05-13 21:59 | PDOC ---
Exam Jose Demential Exam: Jose Note: Please also refer to the separate dictated note~for this date of service dictated separately.~Patient seen individually. Discussed the patient with Nursing staff reviewed the chart.~Reviewed interim history and current functioning. Reviewed vital signs,~Labs/ Radiology~and current medications noted below. Continue current treatment with the changes noted in the dictated addendum note Assessment: Vital Signs: Vital Signs Date Time Temp Pulse Resp B/P (MAP) Pulse Ox O2 Delivery O2 Flow Rate FiO2 05/13/17 20:00 Room Air 05/13/17 19:00 98.1 79 22 112/57 (75) 92 05/13/17 10:49 94.0 I&O Intake and Output 05/14/17 07:00 Intake Total 1150 ml Balance 1150 ml IV Total 1150 ml # Voids 3 Labs: Laboratory Tests Test 05/13/17 05:20 White Blood Count 3.7 x10^3/uL (4.0-11.0) L Red Blood Count 3.99 x10^6/uL (3.50-5.40) Hemoglobin 11.7 g/dL (12.0-15.5) L Hematocrit 33.6 % (36.0-47.0) L Mean Corpuscular Volume 84 fL (79-100) Mean Corpuscular Hemoglobin 29 pg (25-35) Mean Corpuscular Hemoglobin Concent 35 g/dL (31-37) Red Cell Distribution Width 15.9 % (11.5-14.5) H Platelet Count 126 x10^3/uL (140-400) L Sodium Level 138 mmol/L (136-145) Potassium Level 3.8 mmol/L (3.5-5.1) Chloride Level 107 mmol/L (98-107) Carbon Dioxide Level 24 mmol/L (21-32) Anion Gap 7 (6-14) Blood Urea Nitrogen 11 mg/dL (7-20) Creatinine 0.5 mg/dL (0.6-1.0) L Estimated GFR (Cockcroft-Gault) 125.4 BUN/Creatinine Ratio 22 (6-20) H Glucose Level 113 mg/dL (70-99) H Calcium Level 7.6 mg/dL (8.5-10.1) L Total Bilirubin 0.4 mg/dL (0.2-1.0) Aspartate Amino Transferase (AST) 44 U/L (15-37) H Alanine Aminotransferase (ALT) 64 U/L (14-59) H Alkaline Phosphatase 143 U/L (46-116) H Total Protein 5.8 g/dL (6.4-8.2) L Albumin 2.8 g/dL (3.4-5.0) L Albumin/Globulin Ratio 0.9 (1.0-1.7) L Current Medications: Meds: Current Medications Fentanyl Citrate (Fentanyl 2ml Vial) 50 mcg PRN Q15MIN PRN IV PAIN GREATER THAN 3/10 Last administered on 05/11/17 09:07; Start 05/11/17 at 07:45; Stop at 09:34; Status DC Sodium Chloride 1,000 ml @ 1,000 mls/hr Q1H IV Last administered on 05/11/17 07:45; Start 05/11/17 at 07:35; Stop 05/11/17 at 08:34; Status DC Methylprednisolone Sodium Succinate (SOLU-Medrol 125MG VIAL) 125 mg 1X ONCE IV Last administered on 05/11/17 08:02; Start 05/11/17 at 08:15; Stop 05/11/17 at 08:16; Status DC Multi-Ingredient Mouthwash/Gargle (Magic Mouthwash) 10 ml PRN QID PRN PO MOUTH PAIN Last administered on 05/11/17 21:59; Start 05/11/17 at 08:00 Fluconazole/ Sodium Chloride 200 ml @ 100 mls/hr Q24H IV Last administered on 05/13/17 10:24; Start 05/11/17 at 08:00 Acyclovir Sodium 680 mg/Dextrose 263.6 ml @ 263.6 mls/ hr 1X ONCE IV Last administered on 05/11/17 08:29; Start 05/11/17 at 08:30; Stop 05/11/17 at 09:29 ; Status DC Iohexol (Omnipaque 300 Mg/ml) 75 ml 1X ONCE IV Last administered on 05/11/17 08:19; Start 05/11/17 at 08:10; Stop 05/11/17 at 08:11; Status DC Ondansetron HCl (Zofran) 4 mg 1X ONCE IV Last administered on 05/11/17 08:30 ; Start 05/11/17 at 08:30; Stop 05/11/17 at 08:31; Status DC Ondansetron HCl (Zofran) 4 mg PRN Q4HRS PRN IV NAUSEA/VOMITING Last administered on 05/12/17 09:16; Start 05/11/17 at 09:30; Stop 05/12/17 at 09:29 ; Status DC Fentanyl Citrate (Fentanyl 2ml Vial) 50 mcg PRN Q1HR PRN IV PAIN Last administered on 05/11/17 10:38; Start 05/11/17 at 09:30; Stop 05/11/17 at 11:33 ; Status DC Sodium Chloride 1,000 ml @ 200 mls/hr Q5H IV Last administered on 05/12/17 04 :58; Start 05/11/17 at 09:18; Stop 05/12/17 at 09:18; Status DC Acetaminophen (Tylenol) 650 mg PRN Q4HRS PRN PO FEVER Last administered on 05/11 11:42; Start 05/11/17 at 09:30; Stop 05/12/17 at 09:29; Status DC Acyclovir Sodium 680 mg/Dextrose 263.6 ml @ 263.6 mls/ hr Q8H IV Last administered on 05/13/17 18:04; Start 05/11/17 at 17:00 Fluconazole/ Sodium Chloride 200 ml @ 100 mls/hr Q24H IV ; Start 05/12/17 at 08 :00; Status Cancel Methylprednisolone Sodium Succinate (SOLU-Medrol 125MG VIAL) 125 mg Q8HRS IV Last administered on 05/13/17 04:38; Start 05/11/17 at 14:00; Stop 05/13/17 at 11:10; Status DC Multi-Ingredient Mouthwash/Gargle (Magic Mouthwash) 10 ml PRN QID PRN PO MOUTH PAIN; Start 05/11/17 at 09:30; Status Cancel Docusate Sodium (Colace Solution) 100 mg PRN DAILY PRN PO CONSTIPATION; Start 05/11/17 at 09:30 Hydromorphone HCl (Dilaudid) 1 mg PRN Q3HRS PRN IV PAIN Last administered on 13:20; Start 05/11/17 at 12:00 Hydroxychloroquine Sulfate (Plaquenil) 200 mg DAILY PO ; Start 05/12/17 at 09:00 ; Stop 05/12/17 at 09:00; Status DC Mycophenolate Mofetil (Cellcept) 1,000 mg DAILY PO Last administered on 09:17; Start 05/11/17 at 17:00; Stop 05/12/17 at 15:00; Status DC Multivitamins/ Calcium (Thera-M Plus) 1 tab DAILY PO Last administered on 08:27; Start 05/12/17 at 09:00 Hydroxychloroquine Sulfate (Plaquenil) 200 mg DAILY PO Last administered on 09:17; Start 05/11/17 at 17:00; Stop 05/12/17 at 15:00; Status DC Scopolamine (Transderm-Scop) 1 patch Q3DAYS TD ; Start 05/15/17 at 09:00 Scopolamine (Transderm-Scop) 1 patch 1X ONCE TD Last administered on 12:15; Start 05/12/17 at 11:30; Stop 05/12/17 at 11:31; Status DC Acetaminophen/ Butalbital/ Caffeine (Fioricet) 1 tab PRN Q6HRS PRN PO MIGRAINE HEADACHE Last administered on 05/13/17 09:54; Start 05/12/17 at 13:15 Ondansetron HCl (Zofran) 4 mg PRN Q4HRS PRN IV NAUSEA/VOMITING; Start 05/12/17 at 14:15 Promethazine HCl 12.5 mg/Sodium Chloride 50.5 ml @ 101 mls/hr PRN Q6HRS PRN IV NAUSEA/VOMITING Last administered on 05/12/17 14:23; Start 05/12/17 at 14:15 Sodium Chloride 1,000 ml @ 75 mls/hr [id number] IV Last administered on 09:54; Start 05/12/17 at 14:15 Morphine Sulfate (Morphine 2mg Syringe) 2 mg PRN Q2HR PRN IV PAIN Last administered on 05/13/17 14:05; Start 05/12/17 at 14:15 Sodium Chloride 50 ml @ As Directed STK-MED ONCE .ROUTE Last administered on 14:23; Start 05/12/17 at 14:15; Stop 05/12/17 at 14:16; Status DC Promethazine HCl (Phenergan) 25 mg STK-MED ONCE IV ; Start 05/12/17 at 14:15; Stop 05/12/17 at 14:16; Status DC Nystatin (Mycostatin) 5 ml QID SWSW Last administered on 05/13/17 21:00; Start 05/12/17 at 17:00 Ciprofloxacin 1 drop BID OU Last administered on 05/13/17 21:00; Start at 21:00 Methylprednisolone Sodium Succinate (SOLU-Medrol 125MG VIAL) 60 mg Q12H IV Last administered on 05/13/17 18:05; Start 05/13/17 at 18:00; Stop 05/13/17 at 19:41; Status DC Enoxaparin Sodium (Lovenox) 40 mg Q24H SQ Last administered on 05/13/17 12:41 ; Start 05/13/17 at 12:00 Pneumococcal Polyvalent Vaccine (Pneumovax 23) 0.5 ml ONCE ONCE VAX IM Last administered on 05/13/17 14:07; Start 05/13/17 at 12:45; Stop 05/13/17 at 12:46 ; Status DC Active Scripts Active Reported Cellcept (Mycophenolate Mofetil) 500 Mg Tablet 1,000 Mg PO DAILY Daily Vitamin (Multivitamin) 1 Each Tablet 1 Each PO DAILY Prednisone 1 Mg Tablet 6 Mg PO DAILY Hydroxychloroquine Sulfate 200 Mg Tablet 200 Mg PO DAILY Diagnosis: Problems: (1) Psychosis, atypical ERIKA RUSH MD May 13, 2017 21:59
[2017-05-13 23:08] VITALS: BP 115/58
[2017-05-14] MEDS: DEXTROSE 5% IV SCH ×3 (00:46→13:25)
[2017-05-14] MEDS: ACYCLOVIR SODIUM IV SCH ×3 (00:46→13:25)
--- NOTE | 2017-05-14 02:03 | PN ---
DATE: 05/13/2017 SUBJECTIVE: The patient is resting slightly propped up in bed, in no apparent distress. She is definitely feeling much better. The swelling of her left sided face is much improved, has had no further episodes of nausea and vomiting. She is able to eat solid food. OBJECTIVE: GENERAL: On examining her, she looked pale, but no jaundice, cyanosis or thyromegaly. No jugular venous distention. No limb edema. VITAL SIGNS: Her heart rate was 78, blood pressure 114/64, temperature was 98.3, respiratory rate was 16 and oxygen saturation was 92%. HEAD, EYES, EARS, NOSE AND THROAT: Showed normocephalic, atraumatic. NECK: Supple. HEART: Showed first and second heart sounds normal. CHEST: Clear to auscultation. No crepitation or rhonchi. ABDOMEN: Distended, soft, nontender. NEUROLOGIC: She is awake, alert, responding appropriately. Cranial nerves intact. She moves extremities without difficulty. She ambulates without assistance or assistive devices. DERMATOLOGIC: Examination of the skin showed she has shingles in a dermatomal distribution of the left mandibular branch of the left fifth cranial nerve. Her intake over the last 24 hours was 2880, output was 1050. LABORATORY DATA: This morning showed a serum sodium 138, potassium 3.3, chloride 107, bicarbonate 24, anion gap of 7, BUN 11, creatinine 0.5. Estimated GFR was 125 mL per minute. Her glucose was 113, calcium was 7.6. Total bilirubin, AST, ALT, alkaline phosphatase slightly elevated. Her total protein was 5.8, albumin 2.8. Her white cell count was 3700, hemoglobin 11, hematocrit 33, MCV 84 and platelet count of 126,000. ASSESSMENT: 1. Shingles involving the mandibular branch of the left fifth cranial nerve. 2. She also had marked oropharyngeal candidiasis, swelling of the left side of the face and tongue, although there is no erythema. 3. Vulvovaginal candidiasis. 4. Longstanding systemic lupus erythematosus, on immunosuppressive therapy in the form of hydrochloroquine, CellCept as well as prednisone. 5. She has history of melanoma resected from the inner aspect of the left leg. 6. Breast cancer, status post right mastectomy. PLAN: My plan is to continue with IV acyclovir and IV Diflucan as well as nystatin suspension. I will cut down the IV fluid as well as the steroids and if she tolerated her medication well and has had no further nausea and vomiting we might be able to discharge her home tomorrow. MIGUEL A TATE MD DR: AMARILYS/carey JOB#: [id number] / [id number]
[2017-05-14] MEDS: MORPHINE SULFATE 2 MG/ML DISP.SYRIN. IV PRN ×2 (02:40→10:30)
[2017-05-14] MEDS: IV NORMAL SALINE 1,000ML 1,000 ML IV SCH (03:35)
[2017-05-14 05:24] VITALS: BP 144/60
--- NOTE | 2017-05-14 06:03 | NUR ---
Nursing Note Pt had a good night this shift. Asked for PRN pain meds (see eMAR) two times, slept through the entire shift other than those episodes. Pt up in shower at this time. No other complaints at this time, will CTM.
[2017-05-14 07:15] LABS: ALBUMIN 3.5 g/dL (3.4-5.0); CREATININE 0.7 mg/dL (0.6-1.0); GFR 85.1; POTASSIUM 3.4 mmol/L (3.5-5.1); TOTAL BILIRUBIN 0.5 mg/dL (0.2-1.0); TOTAL PROTEIN 6.9 g/dL (6.4-8.2)
[2017-05-14] MEDS: MULTIVITAMIN with MINERAL TABLET. PO SCH (09:06)
[2017-05-14] MEDS: NYSTATIN 100,000 UNITS/ML ORAL SUSPENSION 60ML BOTTLE. SWSW SCH ×2 (09:20→13:06)
[2017-05-14] MEDS: CIPROFLOXACIN 0.3% OPHTH SOLUTION 2.5ML BOTTLE. OU SCH (09:20)
[2017-05-14 09:35] VITALS: BP 133/64
[2017-05-14] MEDS: FLUCONAZOLE 400MG/200ML PREMIX 200 ML IV SCH (10:02)
--- NOTE | 2017-05-14 11:15 | CONS ---
DATE OF CONSULTATION: 05/13/2017 PSYCHIATRIC CONSULTATION This note covers elements not covered in my initial note of 05/13/2017. IDENTIFYING DATA: The patient is a 61-year-old female seen in bed [address] [facility] for a psychiatric consult requested by Dr. Thompson on account of the patient's increasing paranoia, auditory and visual hallucinations and she was started on prednisone. The patient was seen individually, discussed with nursing staff, met with the patient's , reviewed the chart. CHIEF COMPLAINT: "I am not having those feelings at this time." HISTORY OF PRESENT ILLNESS: The patient was brought to the ER by her on account of left-sided facial pain and swelling. She has established diagnosis of lupus and had been on small dosages of steroids as well as CellCept, . She was seen in the ER last Monday treated for otitis media oral and vaginal candidiasis discharged home with Magic mouthwash, Augmentin, Percocet, Colace, and Diflucan. She developed some sores on left side of her face and they were itchy, burning, had swelling of her left side of the face, and the swelling is in the last few days. She is unable to eat and drink. She was found to have shingles along the distribution of the left mandibular branch of the left fifth nerve and also severe marked swelling over the left side of the face and tongue and oropharyngeal candidiasis and was admitted for hydration, started on acyclovir, methylprednisolone, pain management and fluconazole. During the day, she has had increasing auditory and visual hallucinations, paranoia, believing nursing staff were talking about her. No clear suicidal or homicidal ideation. No prior history of psychotic symptoms. PAST PSYCHIATRIC HISTORY: Noncontributory. PAST MEDICAL HISTORY: Systemic lupus erythematosus as noted, history of melanoma. History of CA breast, status post right mastectomy. PAST SURGICAL HISTORY: Total abdominal hysterectomy and bilateral salpingo-oophorectomy, right mastectomy, melanoma resection inner aspect of left leg. DRUG ALLERGIES: Negative. CURRENT PSYCHOTROPICS: Negative. FAMILY HISTORY: Noncontributory from a psychiatric standpoint. SOCIAL HISTORY: She is , has 1 son, smokes a pack a day. No alcohol history. 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 MENTAL STATUS EXAMINATION: I met with the patient's and the patient herself. She is reasonably oriented. She is able to accept that she is paranoid and having hallucinations, but denied any current. Speech is coherent. She is otherwise reasonably oriented. Abstraction fair. No active suicidal or homicidal ideation. Again, no current psychotic symptoms. She is pleasant, smiling. LABORATORY DATA: Reviewed. 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 Anxiety disorder, unspecified. PLAN: I had considered leaving a p.r.n. of atypical antipsychotics, but the patient expressed concern about using it and given the fact she is not having any current psychosis and the dosage of steroids is being reduced and tapered, I decided not to leave a p.r.n. Nursing staff will call me if she has recurrence of psychosis and we could use Zyprexa p.r.n., or Haldol. Dr. Thompson, thank you for the opportunity to participate in your patient's care. We will follow with you. ERIKA URSH MD DR: TRINH/carey JOB#: [id number] / [id number]
[2017-05-14] MEDS: ENOXAPARIN 40 MG/0.4 ML DISP.SYRIN. SQ SCH (12:00)
[2017-05-14] MEDS ORDERED: POTASSIUM CHLORIDE 20 MEQ TABLET.ER. PO ONE (13:30)
[2017-05-14] MEDS ORDERED: predniSONE 20 MG TABLET PO ONE (13:30)
--- NOTE | 2017-05-14 14:59 | NUR ---
Discharge Note: FLORENTINO ROBERTO Discharge instructions and discharge home medications reviewed with Patient and a copy given. All questions have been answered and understanding verbalized. The following instructions and handouts were given: steroid psychosis Discontinued lines and drains: Peripheral IV intact. Patient discharged to Home or Self Care withSpousevia Ambulated
--- NOTE | 2017-05-14 21:26 | DS ---
DATE OF DISCHARGE: 05/14/2017 The patient is a 61-year-old female patient who was admitted on 05/11/2017 with a complaint of worsening left-sided facial pain and swelling. The patient is known to have lupus and has been on steroids as well as CellCept and hydrochloroquine. She apparently was seen in the Emergency Room few days prior to that and she was treated for what seemed to be otitis externa as well as oral and vaginal candidiasis. She was discharged home with a prescription for Magic Mouthwash, Augmentin, Percocet and Colace as well as Diflucan. She came to the Emergency Room as she developed blisters on the left side of the face and they were not itchy or burning, but just painful. She had worsening with the left side of face and the tongue and had difficulty eating or drinking; however, she denied any chills, fevers, sweats or body aches. She was diagnosed with shingles and distribution of mandibular branch of the left fifth. She has also severe marked swelling of the left side of face and tongue and oropharyngeal candidiasis and was admitted and was started on IV fluid, acyclovir and methylprednisolone and brain medication. Initially, she did have problems with nausea and vomiting that has eventually resolved. She did develop probably steroid-induced psychosis. She was extremely paranoid and we did cut down the steroids, for that was seen in consultation by Dr. Cotter. When I saw her today, she was sitting on the edge of the bed comfortably in no apparent distress. She has been tolerating her food without difficulty, has had no further episodes of nausea, vomiting, the swelling of the tongue and left of face has largely subsided. 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 PHYSICAL EXAMINATION: GENERAL: When I examined her, she looked well and was clearly in no apparent respiratory distress. Pale. No jaundice, cyanosis, or thyromegaly. No jugular venous distension. No limb edema. VITAL SIGNS: Heart rate was 71, blood pressure was 133/64, temperature was 98.4, respiratory rate 20, and oxygen saturation was 97%. HEAD, EYES, EARS, NOSE AND THROAT: Showed normocephalic, atraumatic. NECK: Supple. HEART: Showed normal first and second heart sounds with no gallop, rub or murmur. CHEST: Clear to auscultation. No crepitation or rhonchi. ABDOMEN: Distended, soft, nontender. NEUROLOGIC: She is awake, alert, responding appropriately. Her cranial nerves intact. EXTREMITIES: She moves extremities without difficulty. She ambulates without assistance or assistive devices. Her intake was 2883, output was incompletely recorded. LABORATORY WORK: As of yesterday showed a white cell count of 3700, hemoglobin 11.7, hematocrit 33, MCV 84 and platelet count 226,000. Her serum sodium was 139, potassium 3.4, chloride 104, bicarbonate 25, anion gap of 10, BUN 9, creatinine 0.7, estimated GFR was 85 mL per minute. Her glucose was 100, calcium was 8. Total bilirubin, AST, ALT, alkaline phosphatase were slightly elevated. Her total protein was 6.9, albumin was 3.5. DISCHARGE MEDICATIONS: The patient was discharged home to continue on following medications: Acyclovir 800 mg 5 times a day. She was also discharged on her hydroxychloroquine 200 mg daily, multivitamin 1 tablet once a day, CellCept 1000 mg daily, and she was given 30 mg of prednisone today as well as 40 mEq of potassium chloride and had Medrol Dosepak to taper the steroids, and then once that is finished, she should continue to go back to her prednisone 6 mg daily. FINAL DISCHARGE DIAGNOSES: Shingle in mandibular branch of the left fifth cranial nerves, left otitis externa for which she is on ciprofloxacin eardrops. She has what seemed to be steroid-induced psychosis that has resolved, systemic lupus erythematosus, thrombocytopenia, oropharyngeal and valvular vaginal candidiasis. She has also transaminitis likely related to her antifungal treatment. MIUGEL A TATE MD DR: AMARILYS/carey JOB#: [id number] / [id number]
[2017-05-15] MEDS ORDERED: SCOPOLAMINE 1.5MG PATCH. TD SCH (09:00)
== END 2017-05-14 14:34 | disposition home or self-care (01) | DRG 871 ==
LOC: ER 07:02 → ICU 09:15 → 1 SOUTH 05-12 16:09
PROVIDERS: ADMIT Internal Medicine; ATTEND Internal Medicine
DX: A41.9 Sepsis, unspecified organism (principal); G92 Toxic encephalopathy; D69.6 Thrombocytopenia, unspecified; B37.0 Candidal stomatitis; M32.9 Systemic lupus erythematosus, unspecified; B37.3 Candidiasis of vulva and vagina; B02.29 Other postherpetic nervous system involvement; F17.210 Nicotine dependence, cigarettes, uncomplicated; F41.9 Anxiety disorder, unspecified; G89.29 Other chronic pain; T38.0X5A Adverse effect of glucocorticoids and synthetic analogues, initial encounter; F09 Unspecified mental disorder due to known physiological condition; H60.92 Unspecified otitis externa, left ear; R74.0 Nonspecific elevation of levels of transaminase and lactic acid dehydrogenase [LDH]; Z85.3 Personal history of malignant neoplasm of breast; Z90.11 Acquired absence of right breast and nipple; Z85.820 Personal history of malignant melanoma of skin; Z79.899 Other long term (current) drug therapy; Z87.442 Personal history of urinary calculi; Z79.52 Long term (current) use of systemic steroids; Z90.710 Acquired absence of both cervix and uterus; Z90.722 Acquired absence of ovaries, bilateral; Z90.79 Acquired absence of other genital organ(s)
CPT/HCPCS: 36415; 70487; 80053; 83605; 85025; 85027; 85651; 86140; 87040; 87641; 90732; 96361; 96365; 96375; 96376; J0133; J1170; J1450; J1650; J2270; J2405; J2550; J2930; J3010; J7512; J7517; Q9967; 99285-25; J7030

== ENCOUNTER 2018-01-23 20:48 | Emergency (ER) | payer OTHER ==
[~2018-01-23] VITALS: Ht 162.6 cm; Wt 61.2 kg
[~2018-01-23 20:48] MED LIST changes: +NAPR-514 PO; -NAPR500T3 PO
--- NOTE | 2018-01-23 21:01 | ED.ADGEN ---
Past History Past Medical History: Other Past Surgical History: Cancer Surgery, Hysterectomy Alcohol Use: None Drug Use: None Adult General HPI HPI Patient is a 62 year old female who presents with left leg laceration. Patient was hauling some lawn debris out in a trash bag and there apparently was a stake with a sharp and that somehow caught the left anterior portion of her leg. She sustained a laceration to that area. The patient does have autoimmune disease and does take lupus chronically. She describes excessive bleeding at the site. Tetanus shot was not up-to-date. Review of Systems Review of Systems Constitutional: Denies fever or chills HENT: Denies nasal congestion or sore throat Respiratory: Denies cough Cardiovascular: No additional information not addressed in HPI Musculoskeletal: Denies back pain or joint pain Integument: Denies rash or skin lesions All other systems were reviewed and found to be within normal limits, except as documented in this note. Current Medications Current Medications Current Medications Medications (Trade) Dose Ordered Sig/Nazia Start Time Stop Time Status Last Admin Dose Admin Cephalexin HCl (Keflex) 250 mg STK-MED ONCE 01/23/18 22:47 01/23/18 22:48 DC Diphtheria/ Tetanus/Acell Pertussis (Boostrix) 0.5 ml ONCE ONCE 01/23/18 21:30 01/23/18 21:31 DC 01/23/18 21:14 0.5 ML Lidocaine HCl 20 ml 1X ONCE 01/23/18 21:15 01/23/18 21:16 DC Allergies Allergies Allergies Coded Allergies Type Severity Reaction Last Updated Verified No Known Drug Allergies 12/07/14 No Physical Exam Physical Exam Constitutional: Well developed, well nourished, no acute distress, non-toxic appearance. HENT: Normocephalic, atraumatic, bilateral external ears normal, oropharynx moist Eyes: EOMI Neck: Normal range of motion Skin: Warm, dry, no erythema, no rash Back: No tenderness Extremities: approximately four cm laceration over the anterior aspect of the left leg. Lac does extend through skin, fascia, and muscle is visible at a small portion although does not appear lacerated. 5/5 strength with dorsiflexion. 2+ dp pulses. Neurologic: Alert and oriented X 3 Psychologic: Affect normal, judgement normal, mood normal. Current Patient Data Vital Signs Vital Signs Date Time Temp Pulse Resp B/P (MAP) Pulse Ox O2 Delivery O2 Flow Rate FiO2 01/23/18 21:00 98.1 76 16 97 Room Air EKG EKG [] Radiology/Procedures Radiology/Procedures [] Course & Med Decision Making Course & Med Decision Making Pertinent Labs and Imaging studies reviewed. (See chart for details) [] Final Impression Final Impression Patient is seen and examined in the emergency department for laceration. Supplies are gathered and she is prepped for suture. Procedure note: The area is cleansed with Betadine. The wound is anesthetized with 1% lidocaine. 8 total milliliters were used. 1 dissolvable Vicryl suture was placed in the subcutaneous tissue near the proximal aspect of the laceration. Following this, 1 running stitch was placed over the most distal aspect of the wound which was not significantly gaping. About 7 throws were placed with an uninterrupted stitch. Near the proximal area of the wound, simple interrupted sutures were placed with 3-0 nylon. The wound was then dressed. The patient tolerated the procedure well. Patient is given wound care precautions. She is placed on Keflex 500 mg 4 times a day. She instructed to return to the emergency department in 10 days for suture removal. All of her questions are answered prior to discharge and she is agreeable to the plan of care. Dragon Disclaimer Dragon Disclaimer This electronic medical record was generated, in whole or in part, using a voice recognition dictation system. DEMETRIUS ROSSI DO January 23, 2018 21:01
[2018-01-23] MEDS ORDERED: LIDOCAINE 2% 20 ML VIAL. IJ ONE (21:15)
[2018-01-23] MEDS ORDERED: DIPHTH,PERTUSS(ACELL),TET TOX 0.5 ML DISP.SYRIN. VAX IM ONE (21:30)
[2018-01-23 22:00] VITALS: BP 134/61
[2018-01-23] MEDS ORDERED: CEPH-264 PO (22:46)
[2018-01-23] MEDS ORDERED: CEPHALEXIN 250 MG CAPSULE ONE (22:47)
== END 2018-01-23 22:20 | disposition home or self-care (01) ==
LOC: ER 20:48
DX: S81.812A Laceration without foreign body, left lower leg, initial encounter (principal); W27.8XXA Contact with other nonpowered hand tool, initial encounter; Y93.89 Activity, other specified; Y99.8 Other external cause status; Y92.89 Other specified places as the place of occurrence of the external cause
CPT/HCPCS: 12002; 90471; 90715; 99283-25